=== PATIENT | female | born 1990 | race Caucasian/White ===

== ENCOUNTER 2018-02-22 20:31 | Emergency (ER) | payer OTHER ==
[~2018-02-22] VITALS: Ht 167.6 cm; Wt 66.7 kg
[2018-02-22] MEDS ORDERED: IV NORMAL SALINE 1000ML BAG 1,000 ML IV ONE (21:15)
[2018-02-22] MEDS ORDERED: KETOROLAC 15 MG/ML VIAL. IV ONE (21:30)
[2018-02-22] MEDS ORDERED: METOCLOPRAMIDE HCL 10 MG/2 ML VIAL. IV ONE (21:30)
[2018-02-22] MEDS ORDERED: diphenhydrAMINE 50 MG/ML VIAL IVP ONE (21:30)
[2018-02-22] MEDS ORDERED: DEXAMETHASONE SOD PHOS 20 MG/5 ML VIAL. IV ONE (21:30)
[2018-02-22 21:32] LABS: BASO # 0.1 x10^3/uL (0.0-0.2); BASO % 1 % (0-3); EOS # 0.1 x10^3/uL (0.0-0.7); EOS % 1 % (0-3); HEMATOCRIT 41.1 % (36.0-47.0); HEMOGLOBIN 14.5 g/dL (12.0-15.5); LYMPH # 1.7 x10^3/uL (1.0-4.8); LYMPH % 23 % (24-48); MEAN CORPUSCULAR HEMOGLOBIN 31 pg (25-35); MEAN CORPUSCULAR HGB CONC 35 g/dL (31-37); MEAN CORPUSCULAR VOLUME 88 fL (79-100); MONO # 0.4 x10^3/uL (0.0-1.1); MONO % 5 % (0-9); NEUT # 5.2 x10^3uL (1.8-7.7); NEUT % 70 % (31-73); PLATELET COUNT 285 x10^3/uL (140-400); RED BLOOD COUNT 4.65 x10^6/uL (3.50-5.40); RED CELL DISTRIBUTION WIDTH 12.4 % (11.5-14.5); WHITE BLOOD COUNT 7.4 x10^3/uL (4.0-11.0)
[2018-02-22 21:38] VITALS: BP 116/73
[2018-02-22 21:39] LABS: CALCIUM 9.4 mg/dL (8.5-10.1); CREATININE 0.9 mg/dL (0.6-1.0); GFR 74.6
[2018-02-22 21:42] LABS: BILIRUBIN,URINE NEGATIVE (NEG); CLARITY,URINE CLEAR; COLOR,URINE YELLOW; NITRITE,URINE NEGATIVE (NEG); PH,URINE 7.5; PROTEIN,URINE NEGATIVE (NEG-TRACE); UROBILINOGEN,URINE 0.2 mg/dL (0.2 mg/dL)
[2018-02-22 21:45] LABS: ALBUMIN 4.1 g/dL (3.4-5.0); ALBUMIN/GLOBULIN RATIO 1.2 (1.0-1.7); MAGNESIUM 2.2 mg/dL (1.8-2.4); TOTAL BILIRUBIN 0.4 mg/dL (0.2-1.0); TOTAL PROTEIN 7.5 g/dL (6.4-8.2)
[2018-02-22 21:48] LABS: BACTERIA,URINE 0 /HPF (0-FEW); RBC,URINE 0 /HPF (0-2); SQUAMOUS EPITHELIAL CELL,UR OCC /LPF; WBC,URINE 0 /HPF (0-4)
[2018-02-22] MEDS ORDERED: IOHEXOL 300 MG/ML 100ML VIAL. IV ONE (22:00)
[2018-02-22] MEDS ORDERED: CONTRAST GIVEN. MC PRN (22:00)
[2018-02-22] MEDS ORDERED: IOHEXOL 350 MG/ML 100 ML VIAL. IV ONE (22:00)
--- NOTE | 2018-02-22 22:26 | PHYS DOC ---
Past Medical History Past Medical History: Hypertension Past Surgical History: Additional Information: Nonsmoker Alcohol Use: Rarely (wine) Drug Use: None Adult General Chief Complaint Chief Complaint: HYPERTENSION HPI HPI 27-year-old female with past medical history of hypertension presents with report of headache times one week now with bilateral facial numbness which started this afternoon. Patient reports calling the nurses hotline who instructed patient to call 911. EMS arrived and reported patient's blood pressure systolically in the 150s. Patient reports trying to take her blood pressure medication and still having symptoms and therefore decided to present to the ER for evaluation. Patient denies known trauma. Denies fever or chills. Reports some associated dizziness and nausea. Denies neck pain. Denies (history of IUD). Review of Systems Review of Systems Constitutional: Denies fever or chills [] Eyes: Denies change in visual acuity, redness, or eye pain [] HENT: Denies nasal congestion or sore throat [] Respiratory: Denies cough or shortness of breath [] Cardiovascular: Denies chest pain or palpitations GI: Denies abdominal pain,vomiting, or diarrhea; reports nausea : Denies dysuria or hematuria [] Musculoskeletal: Denies back pain or joint pain [] Integument: Denies rash or skin lesions [] Neurologic: Denies headache, focal weakness or sensory changes [] Complete systems were reviewed and found to be within normal limits, except as documented in this note. Current Medications Current Medications Current Medications Medications (Trade) Dose Ordered Sig/Carol Start Time Stop Time Status Last Admin Dose Admin Dexamethasone Sodium Phosphate (Decadron) 10 mg 1X ONCE 02/22/18 21:30 02/22/18 21:31 DC 02/22/18 21:47 10 MG Diphenhydramine HCl (Benadryl) 25 mg 1X ONCE 02/22/18 21:30 02/22/18 21:31 DC 02/22/18 21:46 25 MG Info (CONTRAST GIVEN -- Rx MONITORING) 1 each PRN DAILY PRN 02/22/18 22:00 02/24/18 21:59 Iohexol (Omnipaque 300 Mg/ml) 75 ml 1X ONCE 02/22/18 22:00 02/22/18 22:01 DC 02/22/18 22:13 75 ML Iohexol (Omnipaque 350 Mg/ml) 75 ml 1X ONCE 02/22/18 22:00 02/22/18 22:01 Cancel Ketorolac Tromethamine (Toradol 15mg Vial) 15 mg 1X ONCE 02/22/18 21:30 02/22/18 21:31 DC 02/22/18 21:47 15 MG Metoclopramide HCl (Reglan Vial) 10 mg 1X ONCE 02/22/18 21:30 02/22/18 21:31 DC 02/22/18 21:47 10 MG Sodium Chloride 1,000 ml @ 1,000 mls/hr 1X ONCE 02/22/18 21:15 02/22/18 22:14 DC 02/22/18 21:46 1,000 MLS/HR Allergies Allergies Allergies Coded Allergies Type Severity Reaction Last Updated Verified amoxicillin Allergy Intermediate 02/22/18 Yes clavulanic acid Allergy Intermediate 02/22/18 Yes peanut Allergy Intermediate 02/22/18 Yes Physical Exam Physical Exam Constitutional: Well developed, well nourished, no acute distress, non-toxic appearance. [] HENT: Normocephalic, atraumatic, oropharynx moist Eyes: PERRL, EOMI, conjunctiva normal, no discharge. [] Neck: Normal range of motion, no tenderness, supple, no meningeal signs Cardiovascular: Heart rate regular rhythm, no murmur [] Lungs & Thorax: Bilateral breath sounds clear to auscultation [] Abdomen: Soft, no tenderness Skin: Warm, dry, no erythema, no rash. [] Extremities: No tenderness, Strength 5/5 bilateral upper and lower extremities, ROM intact, no edema. [] Neurologic: Alert and oriented X 3, normal motor function, reports bilateral facial numbness which is equal Psychologic: Affect normal, judgement normal, mood normal. [] Current Patient Data Vital Signs Vital Signs Date Time Temp Pulse Resp B/P (MAP) Pulse Ox O2 Delivery O2 Flow Rate FiO2 02/22/18 20:33 98.1 102 16 147/66 (93) 99 Room Air 98.1 Lab Values Laboratory Tests Test 02/22/18 21:20 02/22/18 21:25 02/22/18 21:36 White Blood Count 7.4 x10^3/uL (4.0-11.0) Red Blood Count 4.65 x10^6/uL (3.50-5.40) Hemoglobin 14.5 g/dL (12.0-15.5) Hematocrit 41.1 % (36.0-47.0) Mean Corpuscular Volume 88 fL (79-100) Mean Corpuscular Hemoglobin 31 pg (25-35) Mean Corpuscular Hemoglobin Concent 35 g/dL (31-37) Red Cell Distribution Width 12.4 % (11.5-14.5) Platelet Count 285 x10^3/uL (140-400) Neutrophils (%) (Auto) 70 % (31-73) Lymphocytes (%) (Auto) 23 % (24-48) L Monocytes (%) (Auto) 5 % (0-9) Eosinophils (%) (Auto) 1 % (0-3) Basophils (%) (Auto) 1 % (0-3) Neutrophils # (Auto) 5.2 x10^3uL (1.8-7.7) Lymphocytes # (Auto) 1.7 x10^3/uL (1.0-4.8) Monocytes # (Auto) 0.4 x10^3/uL (0.0-1.1) Eosinophils # (Auto) 0.1 x10^3/uL (0.0-0.7) Basophils # (Auto) 0.1 x10^3/uL (0.0-0.2) Sodium Level 140 mmol/L (136-145) Potassium Level 4.0 mmol/L (3.5-5.1) Chloride Level 101 mmol/L (98-107) Carbon Dioxide Level 30 mmol/L (21-32) Anion Gap 9 (6-14) Blood Urea Nitrogen 15 mg/dL (7-20) Creatinine 0.9 mg/dL (0.6-1.0) Estimated GFR (Cockcroft-Gault) 74.6 BUN/Creatinine Ratio 17 (6-20) Glucose Level 106 mg/dL (70-99) H Calcium Level 9.4 mg/dL (8.5-10.1) Magnesium Level 2.2 mg/dL (1.8-2.4) Total Bilirubin 0.4 mg/dL (0.2-1.0) Aspartate Amino Transferase (AST) 18 U/L (15-37) Alanine Aminotransferase (ALT) 24 U/L (14-59) Alkaline Phosphatase 68 U/L (46-116) Total Protein 7.5 g/dL (6.4-8.2) Albumin 4.1 g/dL (3.4-5.0) Albumin/Globulin Ratio 1.2 (1.0-1.7) Urine Collection Type Unknown Urine Color Yellow Urine Clarity Clear Urine pH 7.5 Urine Specific Pollock <=1.005 Urine Protein Negative mg/dL (NEG-TRACE) Urine Glucose (UA) Negative mg/dL (NEG) Urine Ketones (Stick) Negative mg/dL (NEG) Urine Blood Negative (NEG) Urine Nitrite Negative (NEG) Urine Bilirubin Negative (NEG) Urine Urobilinogen Dipstick 0.2 mg/dL (0.2 mg/dL) Urine Leukocyte Esterase Negative (NEG) Urine RBC 0 /HPF (0-2) Urine WBC 0 /HPF (0-4) Urine Squamous Epithelial Cells Occ /LPF Urine Bacteria 0 /HPF (0-FEW) POC Urine HCG, Qualitative Hcg negative (Negative) Laboratory Tests 02/22/18 21:20 Laboratory Tests 02/22/18 21:20 EKG EKG @2129 NSR at 77bpm, NO ST elevation, nonspecific t wave inversion III and aVF Radiology/Procedures Radiology/Procedures PROCEDURE: CT ANGIOGRAPHY HEAD AND NECK CTA head with and without and CTA neck with contrast History: Facial numbness and headaches since 1:00 PM Technique: Axialhelical images were obtained of the head and neck after the intravenous administration of 75 mL of Omni 300 IV contrast. Multiplanar reconstruction was performed on an independent work station including MIP imaging and 3D angiographic imaging. Comparison: none CTA head with contrast. Findings: Brain: The han and white matter appears symmetrical. There is no mass effect, extra-axial fluid collections or hydrocephalus. This study is not sensitive for possible hemorrhage. Distal carotid arteries: normal caliber Vertebral basilar system normal Major cerebral arteries: normal Impression: no acute findings end impression CTA neck with contrast: Findings: Aortic arch and origin of great vessels: normal Common carotid arteries: Right: normal Left: normal Internal carotid arteries: Right: normal Left: normal Vertebral basilar system normal Impression: No significant stenosis. PQRS Compliance Statement - Stenosis calculations for CT, MR and conventional angiography are based upon measurement of the distal ICA diameter in accordance with the NASCET methodology. Stenosis calculations for carotid ultrasound studies are derived from validated velocity criteria which are known to correlate with the NASCET methodology. PQRS Compliance Statement: One or more of the following individualized dose reduction techniques were utilized for this examination: 1. Automated exposure control 2. Adjustment of the mA and/or kV according to patient size 3. Use of iterative reconstruction technique Electronically signed by: Yfn Hernandez III, MD (02/22/2018 11:04 PM) [facility] Course & Med Decision Making Course & Med Decision Making Pertinent Labs and Imaging studies reviewed. (See chart for details) Patient presents with one-week history of headache now with facial numbness bilaterally. NIHSS1 due to numbness. Low risk factors for ischemic stroke as patient with only risk factor of high blood pressure. Denies use of blood thinners. Denies trauma. Patient does report some decreased sensation bilaterally to her cheeks which is equal. Otherwise patient completely neurologically intact. No meningeal signs noted. Labs obtained and posted to chart. EKG stable. CTA head and neck without acute process. Headache addressed with dexamethasone, Reglan, ketorolac, and Benadryl. IV fluid hydration also provided. Patient reports interval resolution of symptoms. Repeat NIHSS now 0. Symptoms more likely secondary to atypical migraine. Patient stable for discharge with outpatient follow-up with PCP/neurology. Neurology referral provided. Discussed findings and plan with patient and family , who acknowledge understanding and agreement. Dragon Disclaimer Dragon Disclaimer This electronic medical record was generated, in whole or in part, using a voice recognition dictation system. Departure Departure Impression: Primary Impression: Headache Additional Impression: Facial numbness Disposition: 01 HOME, SELF-CARE Condition: IMPROVED Referrals: JUNA OVIEDO MD (PCP) SIENNA DURANT MD Patient Instructions: Headache, FAQs Scripts Butalb/Acetaminophen/Caffeine ([id number] 50-325-40) 1 Each Tablet 1 EACH PO Q6HRS PRN for HEADACHE, #16 TAB Prov: TONY ORONA DO 02/22/18 Ondansetron (ONDANSETRON ODT) 4 Mg Tab.rapdis 1 TAB PO PRN Q6-8HRS for VOMITING, #16 TAB Prov: TONY ORONA DO 02/22/18 NIHSS Stroke Scale NIH Stroke Scale: NIH Stroke Scale Response (Comments) Value Level of Consciousness: 0 Alert/Responsive 0 LOC Questions: 0 Answers both correctly 0 LOC Commands: 0 Performs both tasks 0 Best Gaze: 0 Normal 0 Visual: 0 No visual loss 0 Facial Palsy: 0 Normal, symmetrical 0 Motor - Left Arm 0 No drift 0 Motor - Right Arm 0 No drift 0 Motor - Left Leg 0 No drift 0 Motor: Right Leg 0 No drift 0 Limb Ataxia: 0 Absent 0 Sensory: 1 Mid to moderate loss 1 Best Language: 0 Normal 0 Dysathria: 0 Normal 0 Extinction and Inattention: 0 Normal 0 Total 1 Problem Qualifiers Primary Impression: Headache Headache type: unspecified Headache chronicity pattern: unspecified pattern Intractability: intractable Qualified Codes: R51 - Headache TONY ORONA DO Feb 22, 2018 22:26
[2018-02-22] MEDS ORDERED: BUTA1TAB23 PO (22:43)
[2018-02-22] MEDS ORDERED: ONDA4TAB12 PO (22:43)
--- NOTE | 2018-02-22 23:08 | RAD ---
CTA head with and without and CTA neck with contrast History: Facial numbness and headaches since 1:00 PM Technique: Axialhelical images were obtained of the head and neck after the intravenous administration of 75 mL of Omni 300 IV contrast. Multiplanar reconstruction was performed on an independent work station including MIP imaging and 3D angiographic imaging. Comparison: none CTA head with contrast. Findings: Brain: The han and white matter appears symmetrical. There is no mass effect, extra-axial fluid collections or hydrocephalus. This study is not sensitive for possible hemorrhage. Distal carotid arteries: normal caliber Vertebral basilar system normal Major cerebral arteries: normal Impression: no acute findings end impression CTA neck with contrast: Findings: Aortic arch and origin of great vessels: normal Common carotid arteries: Right: normal Left: normal Internal carotid arteries: Right: normal Left: normal Vertebral basilar system normal Impression: No significant stenosis. PQRS Compliance Statement - Stenosis calculations for CT, MR and conventional angiography are based upon measurement of the distal ICA diameter in accordance with the NASCET methodology. Stenosis calculations for carotid ultrasound studies are derived from validated velocity criteria which are known to correlate with the NASCET methodology. PQRS Compliance Statement: One or more of the following individualized dose reduction techniques were utilized for this examination: 1. Automated exposure control 2. Adjustment of the mA and/or kV according to patient size 3. Use of iterative reconstruction technique Electronically signed by: Yfn Hernandez III, MD (02/22/2018 11:04 PM) [facility]
--- NOTE | 2018-02-23 06:02 | EKG ---
[facility] [address] [place] [address] Test Date: 2018-02-22 Test Time: 21:29:25 Pat Name: MARYANNE MCLEAN Department: Room: Gender: F [employer]: : 1990 Requested By: TONY ORONA Order Number: [id number] Reading MD: Measurements Intervals [place] Rate: 77 P: 43 AK: 170 QRS: 63 QRSD: 86 T: 14 QT: 374 QTc: 425 Interpretive Statements SINUS RHYTHM INCOMPLETE RIGHT BUNDLE BRANCH BLOCK NO SPECIFIC ECG ABNORMALITIES RI6.01 No previous ECG available for comparison
== END 2018-02-22 23:19 | disposition home or self-care (01) ==
LOC: ER 20:31
DX: R51 Headache (principal); R20.0 Anesthesia of skin; R42 Dizziness and giddiness; I10 Essential (primary) hypertension; R11.0 Nausea; Z88.1 Allergy status to other antibiotic agents; Z88.8 Allergy status to other drugs, medicaments and biological substances; Z91.010 Allergy to peanuts
CPT/HCPCS: 36415; 70496; 70498; 80053; 81001; 81025; 83735; 85025; 93005; 96361; 96374; 96375; 99284; J1100; J1200; J1885; J2765; J7030; Q9967